=== PATIENT | male | born 1950 | race Caucasian/White ===

== ENCOUNTER → 2017-08-19 | Outpatient (CLI) | payer BC | END | disposition home or self-care (01) | LOC: GMAJ 15:31 | PROVIDERS: ATTEND Family Medicine | DX: Z12.5 Encounter for screening for malignant neoplasm of prostate (principal); E29.1 Testicular hypofunction | CPT/HCPCS: 84403; G0103 ==

== ENCOUNTER → 2018-03-18 | Outpatient (CLI) | payer MEDICARE, OTHER | LOC: GMAJ 10:36 | PROVIDERS: ATTEND Family Medicine | DX: Z12.5 Encounter for screening for malignant neoplasm of prostate (principal) ==

== ENCOUNTER → 2019-03-16 | Outpatient (CLI) | payer MEDICARE | LOC: GMAJ 10:58 | PROVIDERS: ATTEND Family Medicine | DX: N40.1 Benign prostatic hyperplasia with lower urinary tract symptoms (principal) ==

== ENCOUNTER → 2019-08-24 | Outpatient (CLI) | payer MEDICARE | LOC: GMAJ 10:39 | PROVIDERS: ATTEND Family Medicine | DX: E29.9 Testicular dysfunction, unspecified (principal); E11.9 Type 2 diabetes mellitus without complications; I10 Essential (primary) hypertension ==

== ENCOUNTER → 2019-08-25 | Outpatient (CLI) | payer MEDICARE, OTHER | LOC: GMAJ 16:48 | PROVIDERS: ATTEND Family Medicine | DX: R53.1 Weakness (principal) ==

== ENCOUNTER → 2019-12-23 | Outpatient (CLI) | payer MEDICARE, OTHER | LOC: GMAJ 11:37 | PROVIDERS: ATTEND Family Medicine | DX: E29.9 Testicular dysfunction, unspecified (principal); I50.9 Heart failure, unspecified; E11.9 Type 2 diabetes mellitus without complications; E78.00 Pure hypercholesterolemia, unspecified ==

== ENCOUNTER → 2020-03-30 | Outpatient (CLI) | payer MEDICARE, OTHER ==
--- NOTE | 2020-04-01 17:11 | MRI ---
EXAM DESCRIPTION: Lumbar Spine w/o Contrast : Magnetic Resonance Imaging. CLINICAL HISTORY: SPINAL STENOSIS LUMBAR REGION COMPARISON: Lumbar radiographs March 21. TECHNIQUE: Multiplanar, multiple standard sequences, non contrast MRI, lumbar spine. FINDINGS: L5-S1: The disc is well visualized on axial T2 series 501, image 3. Normal signal in the disc with disc space preserved. Hypertrophic changes in the facet joints and posterior flavum ligaments (canal elements). Mild canal narrowing. Mild to moderate bilateral foraminal narrowing more on the left. L4-L5: Moderate disc space loss and desiccation. Anterior moderate to severe endplate reactive changes also involving the lateral aspect with disc spur complex encroaching on the left foramen and the left L4 nerve. Small midline protrusion of the disc and inferior extrusion 5 mm impressing on the thecal sac. Hypertrophic changes in the posterior elements with AP canal diameter 9 mm. Moderate narrowing of the right foramen. L3-L4: Disc desiccation and minimal disc space loss to the right of midline. Minimal endplate reactive changes to the right of midline, with disc spur complex protruding 6 mm into the base of the foramen encroaching on the right foramen and abutting the right L3 nerve. Midline protrusion 5 mm with minimal superior extrusion. Hypertrophic changes in the canal elements with transverse canal narrowing. AP canal diameter 6 mm. Moderate to severe left foraminal narrowing. L2-L3: Disc desiccation with mild to moderate endplate reactive changes in the midline posteriorly. Right posterior disc bulge encroaching on the thecal sac and the right subarticular recess. Hypertrophic changes in the canal elements. AP canal diameter 9.5 mm. Disc bulge into the right foramen with stenosis and mild/moderate narrowing left foramen. L1-L2: Disc desiccation with disc space preserved. Anterior disc bulge. Hyperintense T2 weighted annular fissure in the posterior left lateral disc margin abutting the foramen and the left L1 nerve. Bilateral mild foraminal narrowing more on the left. Normal signal in the T12-L1 disc with no bulging. Canal elements are unremarkable. Foramina and canal are patent. Conus terminates just above the disc space. Mild lumbar levoscoliosis. Hypertrophic changes in the canal elements. Mild canal narrowing. Mild lumbar levoscoliosis. Paravertebral soft tissues mild muscle atrophy paravertebral muscles.. Distal cord normal signal and caliber. Otherwise normal marrow signal in the remaining vertebral bodies and the posterior elements. Vertebral bodies are not compressed at any level. AP diameter of the aorta at the celiac axis is 2.9 cm. IMPRESSION: 1. Multiple levels of desiccated discs with endplate changes and multiple levels of degenerative and hypertrophic changes in the flavum ligaments and facet joints. 2. 5 mm protrusion of the L4-5 disc with inferior extrusion and mild central canal stenosis. Left side spondylosis with disc spur complex encroaching on the left L4 nerve and foramen. 3. Disc spur complex on the right at L3-L4 encroaching on the right foramen and the right L3 nerve. Severe central canal stenosis is multifactorial. 4. Right posterior L2-L3 disc bulge encroaching on the foramen in the right subarticular recess with possible compromise right L3 nerve. Also right foraminal stenosis and possible compromise right L2 nerve. 5. Annular fissure in the left L1-L2 disc margin abutting the foramen and the left L1 nerve. Electronically signed by: Hernando Perez MD 04/01/2020 5:10 PM CDT
== END ==
LOC: MRI 11:00
PROVIDERS: ATTEND Family Medicine
DX: M48.061 Spinal stenosis, lumbar region without neurogenic claudication (principal); M51.36 Other intervertebral disc degeneration, lumbar region; M25.78 Osteophyte, vertebrae; M51.26 Other intervertebral disc displacement, lumbar region; M47.896 Other spondylosis, lumbar region; M51.86 Other intervertebral disc disorders, lumbar region; M46.96 Unspecified inflammatory spondylopathy, lumbar region; M24.28 Disorder of ligament, vertebrae

== ENCOUNTER → 2020-06-25 | Outpatient (CLI) | payer MEDICARE, OTHER | LOC: GMAJ 12:16 | PROVIDERS: ATTEND Family Medicine | DX: I10 Essential (primary) hypertension (principal); E11.9 Type 2 diabetes mellitus without complications; Z12.5 Encounter for screening for malignant neoplasm of prostate; I50.9 Heart failure, unspecified; E78.2 Mixed hyperlipidemia; Z13.29 Encounter for screening for other suspected endocrine disorder | CPT/HCPCS: 83036; 84403; 84439; 84443; G0103 ==

== ENCOUNTER → 2020-08-10 | Outpatient (CLI) | payer MEDICARE, OTHER ==
--- NOTE | 2020-08-13 15:56 | CT ---
Study: CT of the Right Shoulder. Indication: LOCALIZED PRIMARY OSTEOARTHRITIS OF SHOULDER REGION, RIGHT Technique: Axial CT of the right shoulder was performed without contrast. Coronal and sagittal reformats performed. This exam was performed according to our departmental dose-optimization program, which includes automated exposure control, adjustment of the mA and/or kV according to patient size and/or use of iterative reconstruction technique. Comparison: MRI April 11, 2020 Findings: Severe hypertrophic AC joint osteoarthritis. Superior migration humeral head with cortical remodeling of the undersurface of the acromion. Several small chronic osseous fragments along the anterior margin of the acromion. Extensive rotator cuff tendon tearing, better evaluated on the recent MRI Severe glenohumeral joint osteoarthritis. Pronounced joint space loss. Small to moderate joint line osteophytes. No significant subluxation humeral head. No acute fracture. Moderate atrophy and grade 2/3 fatty infiltration rotator cuff musculature. Impression: Preoperative surgical planning CT demonstrating severe glenohumeral joint osteoarthritis. Severe AC joint osteoarthritis. Additional findings as above. Electronically signed by: Abelardo Figueroa MD 08/13/2020 3:54 PM [facility]
== END ==
LOC: CT 09:43
PROVIDERS: ATTEND Orthopaedic Surgery
DX: Z01.818 Encounter for other preprocedural examination (principal); M19.011 Primary osteoarthritis, right shoulder; M75.101 Unspecified rotator cuff tear or rupture of right shoulder, not specified as traumatic; M24.011 Loose body in right shoulder; M25.711 Osteophyte, right shoulder

== ENCOUNTER → 2020-08-14 | Outpatient (CLI) | payer MEDICARE, OTHER | LOC: LAB.O 08:14 | PROVIDERS: ATTEND Orthopaedic Surgery | DX: Z01.818 Encounter for other preprocedural examination (principal) ==

== ENCOUNTER → 2020-10-18 | Outpatient (CLI) | payer MEDICARE, OTHER | LOC: LAB.O 12:27 | PROVIDERS: ATTEND Orthopaedic Surgery | DX: Z01.818 Encounter for other preprocedural examination (principal) ==

== ENCOUNTER 2020-10-30 05:19 | Inpatient (IN) | payer MEDICARE, OTHER ==
[2020-10-30] MEDS ORDERED: SODIUM CHL 0.9% 100ML MINI-BAG 100 ML IVPB ONE (05:46)
[2020-10-30] MEDS ORDERED: SODIUM CHLORIDE 0.9% 100ML 100 ML IVPB ONE (05:46)
[2020-10-30] MEDS ORDERED: SODIUM CHLORIDE 0.9% 250ML 250 ML ONE (05:46)
[2020-10-30] MEDS ORDERED: SODIUM CHLORIDE 0.9% (FLUSH) 10 ML SYG ONE (05:46)
[2020-10-30] MEDS ORDERED: ceFAZolin SODIUM 1 GM VIAL ONE ×2 (05:47→06:32)
[2020-10-30] MEDS ORDERED: TRANEXAMIC ACID 1,000 MG/10 ML VIAL ONE (05:47)
[2020-10-30] MEDS ORDERED: VANCOMYCIN HCL INJ 1,000 MG VIAL IVPB ONE ×4 (05:47→07:30)
[2020-10-30] MEDS ORDERED: LACTATED RINGERS 1,000 ML ONE (05:47)
[2020-10-30] MEDS ORDERED: KETAMINE HCL 100 MG/ML VIAL ONE (06:30)
[2020-10-30] MEDS ORDERED: fentaNYL CITRATE INJ 50 MCG/ML 2 ML AMP ONE ×2 (06:30→09:36)
[2020-10-30] MEDS ORDERED: SUGAMMADEX SODIUM 200 MG/2 ML VIAL IV ONE (06:30)
[2020-10-30] MEDS ORDERED: MIDAZOLAM INJ 5 MG/5 ML VIAL ONE (06:30)
[2020-10-30] MEDS ORDERED: DEXMEDETOMIDINE HCL 200 MCG/2 ML INJ IV ONE (06:30)
[2020-10-30] MEDS ORDERED: FAMOTIDINE INJ 10 MG/ML VIAL IV ONE (06:31)
[2020-10-30] MEDS ORDERED: BUPIVACAINE LIPOSOME 13.3 MG/ML VIAL INJ ONE ×3 (06:31→07:30)
[2020-10-30] MEDS ORDERED: ROCURONIUM BROMIDE 10 MG/ML VIAL ONE (06:31)
[2020-10-30] MEDS ORDERED: BUPIVACAINE 0.5% 30 ML VIAL INJ ONE ×2 (06:33→07:30)
[2020-10-30] MEDS ORDERED: LACTATED RINGERS 1,000 ML IVS ONE (06:34)
[2020-10-30] MEDS ORDERED: TRANEXAMIC ACID 1,000 MG/10 ML VIAL IV ONE ×2 (06:35→10:44)
[2020-10-30] MEDS ORDERED: CLINDAMYCIN IV 900MG 50 ML IVPB ONE ×2 (06:40→07:34)
[2020-10-30] MEDS ORDERED: SODIUM CHLORIDE 0.9% 50 ML VIAL ONE (07:00)
[2020-10-30] MEDS ORDERED: LIDOCAINE 1% 10 ML VIAL INJ ONE (07:00)
[2020-10-30] MEDS ORDERED: ePHEDrine SULF 50 MG/ML ONE (07:00)
[2020-10-30] MEDS ORDERED: MAGNESIUM SULFATE INJ 1 GM/2 ML VIAL ONE (07:00)
[2020-10-30] MEDS ORDERED: PROPOFOL 200 MG/20 ML VIAL IV ONE (07:00)
[2020-10-30] MEDS ORDERED: PHENYLEPHRINE INJ 1ML 10 MG/ML VIAL ONE (07:00)
[2020-10-30] MEDS ORDERED: ACETAMINOPHEN IV 1000MG 100 ML ONE (07:19)
[2020-10-30] MEDS ORDERED: ceFAZolin SODIUM 1 GM VIAL IRRIG ONE (07:30)
[2020-10-30] MEDS ORDERED: CLINDAMYCIN IV 900 MG/50 ML BAG IVPB ONE (07:30)
[2020-10-30] MEDS ORDERED: ELECTROLYTE-A 1,000 ML IVS ONE (08:25)
[2020-10-30] MEDS ORDERED: PROMETHAZINE HCL INJ 12.5 MG in SODIUM CHLORIDE 0.9% 50ML 50 ML IVPB PRN (10:26)
[2020-10-30] MEDS ORDERED: BISACODYL SUPPOSITORY 10 MG PR PRN (10:26)
[2020-10-30] MEDS ORDERED: MORPHINE SULFATE INJ 10 MG/ML VIAL IV PRN (10:26)
[2020-10-30] MEDS ORDERED: MORPHINE SULFATE INJ 10 MG/ML VIAL IM PRN (10:26)
[2020-10-30] MEDS ORDERED: ZOLPIDEM TARTRATE 5 MG TAB PO PRN (10:26)
[2020-10-30] MEDS ORDERED: ACETAMINOPHEN 325 MG TAB PO PRN (10:26)
[2020-10-30] MEDS ORDERED: ALUMINUM & MAGNESIUM HYDROXIDE 30 ML UD PO PRN (10:26)
[2020-10-30] MEDS ORDERED: ONDANSETRON INJ 4 MG/2 ML VIAL IV PRN (10:26)
[2020-10-30] MEDS ORDERED: MAGNESIUM HYDROXIDE 30 ML UD PO PRN (10:26)
[2020-10-30] MEDS ORDERED: TEMAZEPAM 15 MG CAP PO PRN (10:26)
[2020-10-30] MEDS ORDERED: NALOXONE HCL INJ 0.4 MG/ML VIAL IV PRN (10:26)
[2020-10-30] MEDS ORDERED: BENZOCAINE-MENTH LOZ (CEPACOL) 1 EA LOZ MT PRN (10:26)
[2020-10-30] MEDS ORDERED: CYCLOBENZAPRINE HCL 10 MG TAB PO PRN (10:26)
[2020-10-30] MEDS ORDERED: ACETAMINOPHEN 500 MG TAB PO PRN (10:26)
[2020-10-30] MEDS ORDERED: PROMETHAZINE HCL INJ 25 MG in SODIUM CHLORIDE 0.9% 50ML 50 ML IVPB PRN (10:26)
[2020-10-30] MEDS ORDERED: hydrOXYzine HCl 25 MG TAB PO PRN (10:26)
[2020-10-30] MEDS ORDERED: SODIUM CHLORIDE 0.9% (FLUSH) 10 ML SYG IV PRN (10:26)
[2020-10-30] MEDS ORDERED: TRANEXAMIC ACID INJ 1,000 MG in SODIUM CHLORIDE 0.9% 100ML 100 ML IVPB ONE (10:26)
[2020-10-30] MEDS ORDERED: DEX 5% W/NACL 0.45% 1000ML 1,000 ML IVS PRN (10:26)
[2020-10-30] MEDS ORDERED: CLINDAMYCIN INJ (VIAL) 300 MG in SODIUM CHLORIDE 0.9% 50ML 50 ML IVPB SCH (10:30)
[2020-10-30] MEDS ORDERED: IV SET AND CAP CHANGE INJ INJ SCH (10:30)
[2020-10-30] MEDS ORDERED: MORPHINE PCA 1 MG/ML 100 ML BAG IVPB SCH (10:30)
[2020-10-30] MEDS ORDERED: LACTATED RINGERS 400 ML IVS ONE (10:44)
[2020-10-30] MEDS ORDERED: CADD ADMIN SET 1 EA PKG INJ ONE (10:46)
[2020-10-30] MEDS ORDERED: MORPHINE PCA 1 MG/ML 100 ML BAG IVPB ONE (11:00)
[2020-10-30] MEDS ORDERED: DEXTROSE 50% 25 GM/50 ML SYG IV PRN (12:59)
[2020-10-30] MEDS ORDERED: GLUCAGON INJ 1 MG VIAL SUBCU PRN (12:59)
--- NOTE | 2020-10-30 15:25 | CONS ---
SUPERVISING PHYSICIAN: Titus Baez MD DATE OF CONSULTATION: 10/30/20 REASON FOR CONSULTATION: Postoperative management. HISTORY OF PRESENT ILLNESS: Mr. Starr is a 70-year-old male patient who has a longstanding history of osteoarthritis in his right shoulder. He has actually had a previous rotator cuff tear and repair in 2011. Apparently, several years previously, he was stepping out of an RV, grabbed for his balance, lost as his balance and at that time pulled his shoulder. Since that time, he has been having a significant amount of pain. In fact, it has been worsened to the point he cannot perform his activities of daily living. He has now requested surgical intervention for control of his symptoms in the form of a total shoulder replacement. He was admitted today for elective reverse total shoulder replacement of the right shoulder. He was seen postoperatively. He did not have any intraoperative complications. He had a block in place and is stable at the time of admission. PAST MEDICAL HISTORY: 1. Benign prostatic hypertrophy. 2. Hyperlipidemia. 3. Hypertension. 4. Congestive heart failure with estimated ejection fraction 53%. 5. Type 2 diabetes mellitus on oral therapy. PAST SURGICAL HISTORY: 1. Bilateral knee replacement in 2011. 2. Rotator cuff repair of the shoulder in 2011. 3. Lumbar surgery of L3-L4 and L4-L5. HOME MEDICATIONS: 1. Testosterone 50 mg weekly. 2. Vitamin B12 injections weekly. 3. Trulicity 0.75 mg subcutaneously weekly. 4. Metoprolol 50 mg daily. 5. Lisinopril 20 mg daily. 6. Finasteride 5 mg daily. 7. Glipizide 5 mg daily. 8. Pravastatin 10 mg daily. 9. Metformin 1000 mg b.i.d. ALLERGIES: NO KNOWN DRUG ALLERGIES. FAMILY HISTORY: Father secondary to pancreatic cancer. Mother with history of Alzheimer's disease. SOCIAL HISTORY: The patient is a retired corporate real estate manager. He is and lives in [place]. He is a former smoker, but quit almost 40 years previously. He does drink alcohol on a fairly regular basis, but denies any illicit drug use. REVIEW OF SYSTEMS: CONSTITUTIONAL: Denies any fevers, chills, general malaise or unintentional weight loss. HEENT: Denies headaches, vision changes, sore throats, earaches, nasal congestion. RESPIRATORY: Denies coughing, wheezing or shortness of breath. CARDIOVASCULAR: Denies chest pain, palpitations or syncopal episodes. GASTROINTESTINAL: Denies nausea, vomiting, diarrhea, constipation or abdominal pain. GENITOURINARY: Denies dysuria, hematuria, polyuria. MUSCULOSKELETAL: As noted in history of present illness. SKIN: Denies lesions, rashes, moles or unexplained changes. NEUROLOGIC: Denies ataxia, seizures, paresthesias or other focal motor deficits. HEMATOLOGIC: Denies unexplained bleeding, bruising or transfusion reactions. PHYSICAL EXAMINATION: VITAL SIGNS: Temperature 97.6, pulse 76, blood pressure 112/70, respirations 20, saturation 94% on room air. GENERAL: The patient is resting comfortably. He is not in any distress. He is alert. HEENT: Tympanic membranes clear bilaterally. Oropharynx is pink, moist without any lesions. NECK: Supple, nontender with full range of motion. No jugular venous distention noted. RESPIRATORY: Lung sounds are clear to auscultation bilaterally without any rhonchi, wheezes or rales. CARDIOVASCULAR: Regular rate and rhythm without any appreciable murmurs, gallops, or rubs. ABDOMEN: Soft, nontender. Positive bowel sounds. EXTREMITIES: Right shoulder and right upper extremity is in a sling. Capillary refills distally on the right fingers is brisk with strong radial pulse bilaterally at 2+. NEUROLOGIC: Cranial nerves II-XII are grossly intact. The patient is alert and oriented times three. SKIN: Warm, pink and dry. LABORATORY: Preoperative labs were reviewed with no significant findings other than elevated blood sugars. RADIOLOGY: No preoperative studies were available at the time of admission. ASSESSMENT: 1. Osteoarthritis having failed outpatient treatment plan, requiring surgical intervention in the form of right reverse total shoulder replacement performed by Dr. Valerio Hamm, orthopedic surgeon, postoperative #0. 2. Diabetes mellitus, type 2. 3. Benign prostatic hypertrophy. 4. Hypertension. 5. Hyperlipidemia. 6. Congestive heart failure history with ejection fraction in 2018 of 53% with no signs of exacerbation. PLAN: We will follow the patient postoperatively anticipating discharge tomorrow. He does have a block in place, but has a PAN PUSHER pump per protocol for pain control. I have encouraged him to do aggressive bronchial hygiene with incentive spirometry. He will be on DVT prophylaxis per protocol postoperatively per Dr. Valerio Hamm. We will resume his home medications once those have been updated and verified. He will be also be on sliding scale insulin per protocol. Again, I anticipate he will hopefully discharge tomorrow, but until then, we will continue to monitor and treat as needed. #[id number] [facility]
[2020-10-30] MEDS: INSULIN LISPRO 100 UNITS/ML PEN SUBCU SCH ×2 (17:12→20:56)
[2020-10-30] MEDS: ceFAZolin SODIUM 2 GM in SODIUM CHL 0.9% 50ML MIN-BAG+ 50 ML IVPB SCH ×2 (17:12→20:39)
[2020-10-30] MEDS: glipiZIDE 5 MG TAB PO SCH (18:12)
[2020-10-30] MEDS: LISINOPRIL 10 MG TAB PO SCH (18:12)
[2020-10-30] MEDS: FINASTERIDE 5 MG TAB PO SCH (18:12)
[2020-10-30] MEDS: VANCOMYCIN HCL INJ 1,000 MG in SODIUM CHLORIDE 0.9% 250ML 250 ML IVPB SCH (18:12)
[2020-10-30] MEDS: METOPROLOL TARTRATE 50 MG TAB PO SCH (18:12)
[2020-10-30] MEDS ORDERED: DOCUSATE CALCIUM 240 MG CAP ONE (19:56)
[2020-10-30] MEDS ORDERED: ENOXAPARIN SODIUM 30 MG/0.3 ML SYG SUBCU ONE (19:57)
[2020-10-30] MEDS: NON-FORMULARY MEDICATION 1 EA MIS (Metformin Hcl [Metformin Hydrochloride E] 1,000 MG) PO SCH (20:36)
[2020-10-30] MEDS: DOCUSATE CALCIUM 240 MG CAP PO SCH (20:36)
[2020-10-30] MEDS ORDERED: CLINDAMYCIN PHOSPHATE 150 MG/ML VIAL ONE (20:46)
[2020-10-30] MEDS ORDERED: SODIUM CHLORIDE 0.9% 50ML 50 ML ONE (20:47)
[2020-10-30] MEDS: CLINDAMYCIN INJ (VIAL) 300 MG in SODIUM CHLORIDE 0.9% 50ML 50 ML IVPB SCH (20:48)
[2020-10-30] MEDS: ENOXAPARIN SODIUM 30 MG/0.3 ML SYG SUBCU SCH (22:31)
[2020-10-31] MEDS: ceFAZolin SODIUM 2 GM in SODIUM CHL 0.9% 50ML MIN-BAG+ 50 ML IVPB SCH ×2 (00:19→08:38)
[2020-10-31] MEDS ORDERED: SODIUM CHLORIDE 0.9% 50ML 50 ML ONE (04:36)
[2020-10-31] MEDS ORDERED: CLINDAMYCIN PHOSPHATE 150 MG/ML VIAL ONE (04:36)
[2020-10-31] MEDS: CLINDAMYCIN INJ (VIAL) 300 MG in SODIUM CHLORIDE 0.9% 50ML 50 ML IVPB SCH ×3 (04:38→20:41)
[2020-10-31] MEDS: VANCOMYCIN HCL INJ 1,000 MG in SODIUM CHLORIDE 0.9% 250ML 250 ML IVPB SCH (05:46)
[2020-10-31] MEDS: INSULIN LISPRO 100 UNITS/ML PEN SUBCU SCH ×4 (07:22→20:42)
[2020-10-31] MEDS: MAGNESIUM OXIDE 400 MG TAB PO SCH (08:37)
[2020-10-31] MEDS: PRAVASTATIN SODIUM 20 MG TAB PO SCH (08:37)
[2020-10-31] MEDS: NON-FORMULARY MEDICATION 1 EA MIS (Metformin Hcl [Metformin Hydrochloride E] 1,000 MG) PO SCH ×2 (08:38→20:43)
[2020-10-31] MEDS ORDERED: NON-FORMULARY MEDICATION 1 EA MIS (Pravastatin Sodium [Pravastatin Sodium] 10 MG) PO SCH (09:00)
[2020-10-31] MEDS ORDERED: NON-FORMULARY MEDICATION 1 EA MIS (Lisinopril [Lisinopril] 20 MG) PO SCH (09:00)
--- NOTE | 2020-10-31 09:45 | PN ---
DATE: 10/31/20 SUBJECTIVE: Mr. Starr is doing well. His pain is well controlled. OBJECTIVE: Afebrile. Vital signs stable. Dressing is clean, dry and intact. He has regained sensation on the lateral aspect of the arm down to about the distal forearm. He is able to actively fire the deltoid. He has range of motion of the digits, however, he is still having some limitations with regards to his sensation there. This is expected given the block that he had yesterday from surgery. ASSESSMENT: Status post reverse total shoulder arthroplasty. PLAN: The plan at this point is for him to begin physical therapy today. #[id number] [facility]
[2020-10-31] MEDS: BIFIDOBACTERIUM INFANTIS 4 MG CAP PO SCH (11:01)
[2020-10-31] MEDS: ENOXAPARIN SODIUM 30 MG/0.3 ML SYG SUBCU SCH ×2 (11:02→22:47)
--- NOTE | 2020-10-31 13:09 | PN ---
SUPERVISING PHYSICIAN: Titus Baez MD DATE: 10/31/20 SUBJECTIVE: The patient is doing well. He is sitting in the chair. He has had good control of his pain. He started physical therapy today and has done well with that. He has no further complaints. OBJECTIVE: VITAL SIGNS: Temperature 98.1, pulse 89, blood pressure 112/69, respiratory rate 16, saturation 95% on 2 liters nasal cannula. GENERAL: The patient is resting comfortably, in no acute distress. CHEST: Lungs are clear to auscultation. HEART: Regular rate and rhythm. ABDOMEN: Soft, nontender. Positive bowel sounds. EXTREMITIES: Right shoulder has a large dressing in place with a sling. Radial pulses are 2+ bilaterally with brisk capillary refill distally. He does have sensory returning back to his fingers, but not to the upper biceps region as he did get a block in surgery. NEUROLOGIC: Alert and oriented times three. SKIN: Warm, pink and dry. LABORATORY: Postoperative hemoglobin 13.2, hematocrit 39.8. Blood sugars have ranged between 184 and 282. RADIOLOGY: No additional radiographic studies. ASSESSMENT: 1. Osteoarthritis having failed outpatient treatment plan, requiring surgical intervention in the form of right reverse total shoulder replacement performed by Dr. Valerio Hamm, orthopedic surgeon, postoperative #1. 2. Diabetes mellitus, type 2. 3. Benign prostatic hypertrophy. 4. Hypertension. 5. Hyperlipidemia. 6. Congestive heart failure history with ejection fraction in 2018 of 53% with no signs of exacerbation. PLAN: We will continue to follow the patient postoperatively. He started his physical therapy today. He will be getting off his ORCHID GROWER and transition to p.o. pain medicine. I anticipate discharging tomorrow. We will await further instructions and management orthopedic-hankins with physical therapy and Dr. Hamm. Until then, we will continue to monitor his blood pressure and blood sugars as needed and encourage good bronchial hygiene. Hopefully, he will be able to discharge within the next 24 hours. #[id number] [facility]
[2020-10-31] MEDS: LISINOPRIL 10 MG TAB PO SCH (16:27)
[2020-10-31] MEDS: METOPROLOL TARTRATE 50 MG TAB PO SCH (16:27)
[2020-10-31] MEDS: FINASTERIDE 5 MG TAB PO SCH (16:28)
[2020-10-31] MEDS: glipiZIDE 5 MG TAB PO SCH (16:28)
[2020-10-31] MEDS: HYDROcodone 10MG/APAP 325MG 1 EA TAB PO PRN (18:20)
[2020-10-31] MEDS ORDERED: metFORMIN HCL 500 MG TAB ONE (18:57)
[2020-10-31] MEDS ORDERED: SODIUM CHLORIDE 0.9% (FLUSH) 10 ML SYG ONE (19:00)
[2020-10-31] MEDS ORDERED: ENOXAPARIN SODIUM 30 MG/0.3 ML SYG SUBCU ONE (19:00)
[2020-10-31] MEDS: DOCUSATE CALCIUM 240 MG CAP PO SCH (20:42)
[2020-10-31] MEDS: SODIUM CHLORIDE 0.9% (FLUSH) 10 ML SYG IV SCH (20:44)
[2020-11-01] MEDS: HYDROcodone 10MG/APAP 325MG 1 EA TAB PO PRN (00:22)
[2020-11-01] MEDS: CLINDAMYCIN INJ (VIAL) 300 MG in SODIUM CHLORIDE 0.9% 50ML 50 ML IVPB SCH (04:32)
[2020-11-01] MEDS: INSULIN LISPRO 100 UNITS/ML PEN SUBCU SCH (07:45)
--- NOTE | 2020-11-01 08:39 | OP ---
DATE OF PROCEDURE: 10/30/20 PREOPERATIVE DIAGNOSIS: 1. Right shoulder osteoarthritis. 2. Right massive rotator cuff tear. POSTOPERATIVE DIAGNOSIS: 1. Right shoulder osteoarthritis. 2. Right massive rotator cuff tear. PROCEDURE: 1. Right reverse total shoulder arthroplasty. SURGEON: Valerio Hamm MD. ASSISTANT PROFESSOR OF MATHEMATICS: Hernando Montes CST, SA-C. ANESTHESIA: General anesthesia. COMPLICATIONS: None. FINDINGS: 1. Massive tear involving the rotator cuff. 2. Severe arthritis. INDICATION: Mr. Starr has a history of issues with his rotator cuff and had surgical intervention. He developed rotator cuff arthropathy and after discussing the risks, benefits and alternatives to operative therapy for his current condition, informed consent was obtained. PROCEDURE: The patient was brought to the Operating Room and placed in the supine position. General anesthesia was induced. The patient was transitioned into the beach chair position. Following transitioning, the arm and shoulder were sterilely prepped and draped. An incision was made from the coracoid process in the deltopectoral interval. Blunt dissection was carried down to the deltopectoral interval. The cephalic vein was identified. Following identification of the vein, it was taken laterally and the interval was exposed and dissection was carried down to the clavipectoral fascia. The subscapularis had been almost completely torn and dissection was carried out to dissect around the proximal humerus. The anterior humeral circumflex vessels were ligated and the humerus was exposed. The biceps tendon was cut and tagged. The humerus was dislocated and the humeral neck cut was made using an external guide. Following that, the arm was externally rotated and the proximal humerus was identified and a canal finder was used. Upon entering the canal, it was noted that he had four retained suture anchors which were removed and the areas debrided. Care was taken to ensure all debris had been removed from the suture anchors. The proximal humerus was sequentially reamed and broached to a size 13. A protective plate was placed over the proximal humerus. The glenoid was exposed by placing retractors on the posterior glenoid neck and anterior glenoid neck. The labrum was removed and the glenoid was identified. At approximately 12 mm superior to the inferior edge of the glenoid, a guidewire was placed with a slight inferior angled approach. Sequential reaming was performed and bleeding bony bed, especially on the inferior surface of the glenoid was achieved. The baseplate was applied and four screws placed in the peripheral baseplate. Glenosphere was placed and trial reduction was performed. Following reduction, the arm was taken through range of motion. There was no impingement, there was no laxity and there was no evidence of impending dislocation. The arm was dislocated again and the trial components were removed from the humerus. The wound was very thoroughly irrigated and the final components were impacted into place. The shoulder was thoroughly irrigated. Following irrigation, the wound was closed with reapproximation of the deltopectoral interval. The skin was closed with a combination of running and interrupted subcuticular stitches. Sterile dressings were placed. The patient was awoken from anesthesia and taken to Recovery. POSTOPERATIVE PLAN: The patient will be begin routine shoulder rehab on postoperative day 1. COMPONENTS: [place] [employer] Reverse Total Shoulder Arthroplasty, size 13 stem and size 32 glenosphere. #[id number] [facility]
[2020-11-01] MEDS ORDERED: SULFA/TRIMETH 800/160 (DS) TAB 1 EA TAB PO SCH (09:00)
[2020-11-01] MEDS: BIFIDOBACTERIUM INFANTIS 4 MG CAP PO SCH (09:19)
[2020-11-01] MEDS: PRAVASTATIN SODIUM 20 MG TAB PO SCH (09:19)
[2020-11-01] MEDS: MAGNESIUM OXIDE 400 MG TAB PO SCH (09:19)
[2020-11-01] MEDS: NON-FORMULARY MEDICATION 1 EA MIS (Metformin Hcl [Metformin Hydrochloride E] 1,000 MG) PO SCH (09:20)
[2020-11-01] MEDS: SODIUM CHLORIDE 0.9% (FLUSH) 10 ML SYG IV SCH (09:21)
[2020-11-01 09:35] VITALS: BP 129/75; TEMP 97.7; O2SAT 93
--- NOTE | 2020-11-01 11:41 | DS ---
SUPERVISING PHYSICIAN: Titus Baez MD ADMISSION DIAGNOSIS: 1. Osteoarthritis having failed outpatient treatment plan, requiring surgical intervention in the form of right reverse total shoulder replacement performed by Dr. Valerio Hamm, orthopedic surgeon, postoperative #0. 2. Diabetes mellitus, type 2. 3. Benign prostatic hypertrophy. 4. Hypertension. 5. Hyperlipidemia. 6. Congestive heart failure history with ejection fraction in 2018 of 53% with no signs of exacerbation. DISCHARGE DIAGNOSIS: 1. Osteoarthritis having failed outpatient treatment plan, requiring surgical intervention in the form of right reverse total shoulder replacement performed by Dr. Valerio Hamm, orthopedic surgeon, postoperative #2. 2. Diabetes mellitus, type 2. 3. Benign prostatic hypertrophy. 4. Hypertension. 5. Hyperlipidemia. 6. Congestive heart failure history with ejection fraction in 2018 of 53% with no signs of exacerbation. REASON FOR HOSPITALIZATION: Mr. Starr is a 70-year-old male patient who has a longstanding history of osteoarthritis in his right shoulder. He has actually had a previous rotator cuff tear and repair in 2011. Apparently, several years previously, he was stepping out of an RV, grabbed for his balance, lost as his balance and at that time pulled his shoulder. Since that time, he has been having a significant amount of pain. In fact, it has been worsened to the point he cannot perform his activities of daily living. He has now requested surgical intervention for control of his symptoms in the form of a total shoulder replacement. He was admitted today for elective reverse total shoulder replacement of the right shoulder. He was seen postoperatively. He did not have any intraoperative complications. He had a block in place and is stable at the time of admission. LABORATORY: Postoperative hemoglobin 13.2, hematocrit 39.8. Blood sugars ranged between 197 and 282. RADIOLOGY: No additional radiographic studies. CONSULTATION: Hospitalist consultation, please see my consultation note for details. PROCEDURES: Right reverse total shoulder arthroplasty performed by Dr. Valerio Hamm, orthopedic surgeon. Please see his operative note for details. HOSPITAL COURSE: Mr. Starr was admitted on 10/30/20 for elective right reverse total shoulder arthroplasty. He had no intraoperative complications. He did have a block in place after surgery. Postoperatively, he did well. He was able to do some passive range of motion with physical therapy. He had good pain control. He was tolerating a diet. It was felt he was clinical improved well enough to continue with outpatient management which was [facility]. PLAN: Mr. Starr was discharged on 11/01/20. He is to followup with Dr. Hamm on 11/15/20 at 10:30 AM. He is to resume diabetic diet as tolerated. Activity is as per physical therapy, no pushing or pulling with affected limb until cleared by Dr. Hamm. Wound management was through Dr. Hamm's postoperative instructions. He may shower, but no tub baths. He is to call Dr. Hamm's office with any concerning questions or any changes. Medications prescribed on discharge included: 1. Align 4 mg daily while on antibiotics. 2. Doxycycline 100 mg q.12h., #10, no refills. 3. Flexeril 10 mg at bedtime as needed for spasms, #15, no refills. 4. Pain management was per Dr. Hamm's prescription with [place]. CONDITION ON DISCHARGE: Stable and improved. DISPOSITION: The patient was discharged home. #[id number] [facility]
--- NOTE | 2020-11-01 20:33 | RAD ---
XR SHOULDER 2 OR MORE VIEWS HISTORY: 70 years Male S/P Total Shoulder Arthroplasty COMPARISON: CT right shoulder dated August 10, 2020. TECHNIQUE: 2 views of the right shoulder. IMPRESSION: Status post reverse right shoulder arthroplasty. Imaged hardware appears intact and in normal alignment. No periprosthetic fracture detected. Postsurgical changes noted in the overlying soft tissues. Electronically signed by: Luis Fernando Ann MD 11/01/2020 8:31 PM [facility]
== END 2020-11-01 10:20 | disposition home or self-care (01) | DRG 483 ==
LOC: AMB 05:19 → MS 11:55
PROVIDERS: ADMIT Orthopaedic Surgery; ATTEND Nurse Practitioner Family
PROC: 0RRJ00Z Replacement of Right Shoulder Joint with Reverse Ball and Socket Synthetic Substitute, Open Approach (ICD-10-PCS; principal; 2020-10-30 07:00)
DX: M19.011 Primary osteoarthritis, right shoulder (principal); M75.101 Unspecified rotator cuff tear or rupture of right shoulder, not specified as traumatic; I11.0 Hypertensive heart disease with heart failure; E78.5 Hyperlipidemia, unspecified; N40.0 Benign prostatic hyperplasia without lower urinary tract symptoms; I50.9 Heart failure, unspecified; E11.9 Type 2 diabetes mellitus without complications; Z79.84 Long term (current) use of oral hypoglycemic drugs